=== PATIENT | male | born 1990 | race Caucasian/White ===

== ENCOUNTER 2018-07-30 18:12 | Inpatient (IN) | payer OTHER ==
[~2018-07-30] VITALS: Ht 172.7 cm; Wt 61.2 kg
[2018-07-30] MEDS ORDERED: ASPI81CH PO (18:20)
[2018-07-30] MEDS ORDERED: ESCI20 PO (18:21)
[2018-07-30] MEDS ORDERED: HYDPAM50 PO (18:21)
[2018-07-30] MEDS ORDERED: CLON.1 PO (18:21)
[2018-07-30] MEDS ORDERED: METOPROLOL PO (18:22)
[2018-07-30 19:05] LABS: BASOPHILS ABSOLUTE AUTO 0.07 K/mm3 (0.00-0.23); BASOPHILS PERCENT AUTO 0 % (0-2); EOSINOPHILS ABSOLUTE AUTO 0.01 K/mm3 (0.00-0.68); EOSINOPHILS PERCENT AUTO 0 % (0-6); Hematocrit 38.5 % (37.0-53.0); Hemoglobin 13.6 g/dL (13.5-17.5); IMMATURE GRAN PERCENT AUTO 1 % (0-1); LYMPHOCYTES ABSOLUTE AUTO 0.85 K/mm3 (0.84-5.20); LYMPHOCYTES PERCENT AUTO 4 % (21-46); MONOCYTES ABSOLUTE AUTO 1.23 K/mm3 (0.16-1.47); MONOCYTES PERCENT AUTO 6 % (4-13); Mean Corpuscular HGB 32.2 pg (26.0-34.0); Mean Corpuscular HGB Conc 35.3 g/dL (31.5-36.5); Mean Corpuscular Volume 91 fL (80-100); Mean Platelet Volume 9.6 fL (9.1-12.4); NEUTROPHILS ABSOLUTE AUTO 19.75 K/mm3 (1.96-9.15); NEUTROPHILS PERCENT AUTO 90 % (41-73); Platelet Count 310 K/mm3 (150-400); RDW Coefficient Variation 13.2 % (11.7-14.2); RDW Standard Deviation 43.2 fL (35.1-46.3); Red Blood Cell Count 4.22 M/mm3 (4.30-5.90); White Blood Cell Count 22.01 K/mm3 (4.00-11.30)
[2018-07-30 19:20] LABS: International Normalized Ratio 1.02; Prothrombin Time Results 10.8 Sec (9.7-11.5)
[2018-07-30 19:35] LABS: Alanine Aminotransfer (ALT/SGP 26 U/L (12-78); Albumin, Blood 3.8 g/dL (3.4-5.0); Alk Phos 71 U/L (50-136); Anion Gap 8 mmol/L (6-16); Aspartate Aminotrans (AST/SGOT 28 U/L (12-37); Bilirubin, Total 0.8 mg/dL (0.1-1.0); Blood Urea Nitrogen 17 mg/dL (8-24); Bun/Creatinine Ratio 26.2 (12.0-20.0); CO2, Blood 24 mmol/L (21-32); Calcium, Blood 8.8 mg/dL (8.5-10.1); Chloride, Blood 104 mmol/L (98-108); Creatinine, Blood 0.65 mg/dL (0.60-1.20); Glomerular Filtration Rate >60 (60-); Glucose, Blood 94 mg/dL (70-99); Potassium, Blood 3.9 mmol/L (3.5-5.5); Sodium, Blood 136 mmol/L (136-145); Total Protein, Blood 7.8 g/dL (6.4-8.2); Troponin I <0.015 ng/mL (0.000-0.040)
[2018-07-30 20:22] LABS: Source, Urine Catheter
[2018-07-30 20:33] LABS: Influenza A Negative (NEGATIVE); Influenza B Negative (NEGATIVE)
[2018-07-30 20:49] LABS: Appearance, Urine Clear (Clear); Bilirubin, Urine Neg (Neg); Blood, Urine Neg (Neg); Color, Urine Yellow (P-Yellow); Glucose Qualitative, Urine Neg (Neg); Ketones, Urine Neg (Neg); Leukocyte Esterase, Urine Neg (Neg); Nitrite, Urine Neg (Neg); Protein, Urine Neg (Neg); Specific Gravity, Urine 1.015 (1.003-1.022); Urobilinogen, Urine NORM (Normal)
[2018-07-30 20:59] LABS: U Amphetamine Screen Not Detected; U Barbituate Screen Not Detected; U Benzodiazapine Screen Not Detected; U Buprenorphine Screen Not Detected; U Cannabinoids Screen DETECTED; U Cocaine Screen Not Detected; U Methadone Screen Not Detected; U Methamphetamine Screen Not Detected; U Opiates Screen Not Detected; U Oxycodone Screen Not Detected; U Phencyclidine Screen Not Detected; U Propoxyphene Screen Not Detected
[2018-07-31] MEDS ORDERED: GABA300 PO (00:33)
[2018-07-31] MEDS ORDERED: PROM25 PO (00:35)
[2018-07-31 05:06] LABS: BASOPHILS ABSOLUTE AUTO 0.11 K/mm3 (0.00-0.23); BASOPHILS PERCENT AUTO 0 % (0-2); EOSINOPHILS ABSOLUTE AUTO 0.02 K/mm3 (0.00-0.68); EOSINOPHILS PERCENT AUTO 0 % (0-6); Hematocrit 37.5 % (37.0-53.0); Hemoglobin 12.7 g/dL (13.5-17.5); IMMATURE GRAN ABSOLUTE AUTO 0.14 K/mm3 (0.00-0.10); IMMATURE GRAN PERCENT AUTO 1 % (0-1); LYMPHOCYTES ABSOLUTE AUTO 1.95 K/mm3 (0.84-5.20); LYMPHOCYTES PERCENT AUTO 7 % (21-46); MONOCYTES ABSOLUTE AUTO 2.45 K/mm3 (0.16-1.47); MONOCYTES PERCENT AUTO 9 % (4-13); Mean Corpuscular HGB 32.1 pg (26.0-34.0); Mean Corpuscular HGB Conc 33.9 g/dL (31.5-36.5); Mean Platelet Volume 9.9 fL (9.1-12.4); NEUTROPHILS ABSOLUTE AUTO 23.27 K/mm3 (1.96-9.15); NEUTROPHILS PERCENT AUTO 83 % (41-73); Platelet Count 270 K/mm3 (150-400); RDW Coefficient Variation 13.2 % (11.7-14.2); RDW Standard Deviation 45.4 fL (35.1-46.3); Red Blood Cell Count 3.96 M/mm3 (4.30-5.90); White Blood Cell Count 27.94 K/mm3 (4.00-11.30)
[2018-07-31 05:20] LABS: Mean Corpuscular Volume 95 fL (80-100)
--- NOTE | 2018-07-31 05:26 | NUR ---
SHIFT SUMMARY: PT IS ALERT AND ORIENTED. PT IS ANXIOUS BUT COOPERATIVE. PT CALLS APPROPRIATELY, AND OFTEN. PT IS INDEPENDENT. PT REPORTS ANXIETY AND LEG PAIN R/T TO [facility], CALLED DR. NORIEGA SEVERAL TIMES FOR ORDERS, MEDICATING PER EMAR. PT REPORTS NAUSEA, MEDICATING PER EMAR. PT DENIES SOB. PT SLEPT VERY LITTLE OVERNIGHT. PT DOES APPEAR TO BE WITHDRAWING FROM [facility]. TELE IN PLACE, PT CONSISTENTLY SINUS TACH. FLUIDS RUNNING ORDERED. BED IN LOW POSITION, CALL LIGHT WITHIN REACH. WILL REPORT TO DAY NURSE.
[2018-07-31 05:29] LABS: Anion Gap 9 mmol/L (6-16); Blood Urea Nitrogen 17 mg/dL (8-24); CO2, Blood 24 mmol/L (21-32); Chloride, Blood 107 mmol/L (98-108); Glucose, Blood 91 mg/dL (70-99); Potassium, Blood 4.1 mmol/L (3.5-5.5); Sodium, Blood 140 mmol/L (136-145)
[2018-07-31 07:32] LABS: Bun/Creatinine Ratio 24.3 (12.0-20.0); Glomerular Filtration Rate >60 (60-)
--- NOTE | 2018-07-31 09:00 | NUR ---
PT HAS BEEN EXTREMELY ANXIOUS THIS MORNING. USING CALL GONZALES EVERY 10 MIN OR SO ASKING FOR MORE MEDICATIONS FOR ANXIETY. DR MARK IN TO SEE PT. WILL CONTINUE TO MONITOR AND MEDICATE PER EMAR.
--- NOTE | 2018-07-31 10:01 | NUR ---
NICOTINE PATCH DOSE DECREASED, PREV PATCH REMOVED AND NEW 7 MG PATCH APPLIED
--- NOTE | 2018-07-31 10:03 | NUR ---
Echocardiogram performed.
--- NOTE | 2018-07-31 10:45 | NUR ---
PT OUTSIDE PT INSISTING ON GOING OUT TO SMOKE, EXPLAINED THAT PER POLICY PTS WITH TELE CANNOT GO OUT, PT EDUCATED ON TELE NOT SHOWING ON MONITOR WHEN OUTSIDE, UNABLE TO MONITOR HEART RATE AND RYTHMN. PT CONTINUES TO INSIST AND IS GOING DOWN THE [facility]. TELE MONITOR INFORMED. NET C DEVELOPER NOTIFIED.
--- NOTE | 2018-07-31 18:36 | NUR ---
PT HAS BEEN ANXIOUS T/O THE SHIFT, CALLING FREQUENTLY FOR MORE "ANXIETY MEDS" AND PAIN MEDICATIONS. DR MARK CALLED AND PT MEDICATED PER ORDERS AND EMAR. POSITIVE BLOOD CULTURES X2 RECEIVED FROM LAB AND DR MARK INFORMED. DR PLATA CONSULTED AND HE WAS AT BEDSIDE THIS AFTERNOON. NO ACUTE CHANGES NOTED THIS SHIFT, WILL CONTINUE TO MONITOR AND REPORT TO ONCOMING RN.
[2018-07-31] MEDS ORDERED: CLON2 PO (21:51)
[2018-07-31] MEDS ORDERED: ALPR1 PO (21:52)
--- NOTE | 2018-08-01 03:39 | NUR ---
2205 FACILITIES FLIGHT CHECK PILOT MADE THIS RN AWARE THAT PT HAD GONE OUTSIDE AND HAD ASKED OTHER PATIENTS/GUEST IF THEY HAD ANY MEDICATIONS ON THEIR PERSON THAT THEY WOULD BE WILLING TO SELL TO HIM (PATIENT). DOG FOOD SHREDDER OPERATOR MADE AWARE. DOG FOOD SHREDDER OPERATOR MADE RN CONCRETE BUSTER OPERATOR AWARE. DOG FOOD SHREDDER OPERATOR SPOKE TO SAID GUEST ABOUT INTERACTION; GUEST CONFIRMED WHAT WAS STATED TO FACILITIES FLIGHT CHECK PILOT AND ALSO MADE KNOW THAT PATIENT STATED MUCH OF HIS LIFE HISTORY TO GUEST. PATIENT THEN TOLD THAT THIS RN HAD BECOME AWARE OF SUCH INTERACTION. PT BECAME A BIT AGGRESSIVE STATING THAT IT WAS MEANT TO BE A JOKE, "THAT IT IS LIKE PULLING TEETH TRYING TO GET MEDICATIONS AROUND HERE". MADE PATIENT AWARE THAT HE SHOULD NOT BE ASKING TO BUY OTHER INDIVIDUALS MEDICATIONS. PATIENT DEMONSTRATES UNDERSTANDING.
--- NOTE | 2018-08-01 04:35 | NUR ---
SHIFT SUMMARY A/O X3, ABLE TO MAKE NEEDS KNOWN. INDEPENDENT TO ROOM AND HALLS; STEADY GAIT NOTED. REQUESTED ALL PRN MEDICATIONS SOON PATIENT COULD RECEIVE; STATED IN EXCRUCIATING PAIN, RATED 6/10; HOWEVER FACE SCALE APPEARED TO BE 2/10. 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 ALSO EXHIBITS PSEUDO TREMORS WHEN HE KNOWS THIS RN CAN SEE HIM. STATES HIS LEGS CRAMP, WHICH CAUSE MUCH OF THE PAIN. OUTSIDE TO SMOKE X2. INDICENT NOTED (SEE PREV PEARL NOTE). APPREARED TO REST OFF AND ON FROM ABOUT 2340 ON. VSS REMAIN STABLE/AFEBRILE. NO ACUTE CHANGES OVERNIGHT. BED IN LOWEST POSITION. CALL LIGHT AND BELONGINGS WITHIN REACH. WCTM. REPORT TO ONCOMING RN.
--- NOTE | 2018-08-01 14:40 | NUR ---
PT UNABLE TO BE LOCATED.
--- NOTE | 2018-08-01 17:20 | NUR ---
PT ANTIBIOTIC ADMINISTRATION LATE DUE TO PATIENT UNABLE TO BE LOCATED ON MULTIPLE OCCAISIONS.
--- NOTE | 2018-08-01 18:34 | NUR ---
SHIFT SUMMARY PT REQUESTING PAIN MEDS REFUSED OFFER FOR TYLENOL OR IBUPROFEN. DR. MARK DENIED REQUEST FOR NARCOTICS FOR PAIN. VEGETATIONS FOUND ON [facility] TODAY. PT WITH MULTIPLE REQUESTS FOR ANXIETY MEDS THROUGHOUT DAY. DOWN TO SMOKE SEVERAL TIMES. SIGNIFICANT OTHER REQUESTING PATIENT BE TAKEN OFF ALL ANTI ANXIETY MEDS CURRENTLY ORDERED. RECEIVING TREATMENT AT [facility] PRIOR TO THIS ADMISSION. APPEARS IN NO ACUTE DISTRESS AT THIS TIME. SITTING ON BED WITH CROSSED LEGS; FLORES WELL. EATING AND DRINKING WELL AND ABLE TO PERFORM ALL ADL'S WITHOUT DIFFICULTY. DIFFICULTY.
--- NOTE | 2018-08-02 01:31 | NUR ---
pt wanted clonidine but did not meet critera, retook vitals got bp of 117/74, pt felt the medication would help him
--- NOTE | 2018-08-02 07:18 | NUR ---
very aware of medications, a+o wants to change his pain medication plan, does not feel his pain is controlled. call light in reach, saline locked, room air, family in room
[2018-08-02 14:52] LABS: Vancomycin, Trough 7.9 ug/mL (5.0-10.0)
--- NOTE | 2018-08-02 18:25 | NUR ---
Several visits with Guillaume and his , Glenna today. Guillaume was tearful. He admitted to returning to IV drug use and said "I have two months to live." He could not remember who told him this. Throughout our conversations, he would alternate between tearfulness and aggitation. He was irritated that "We" are not giving him the medication he wants for his "chronic pain." His arrived and they began to argue. Facilitated a conversation between them that appeared to calm them both for awhile. Both are historionic and tense. Provided prayer for them at their request. Guillaume moved from statements about his impending and wanting to go to [place] for another valve replacement. I am unsure what is realistic. I will remain available.
--- NOTE | 2018-08-02 18:50 | NUR ---
PATIENT A/OX4, UP INDEPENDENTLY IN ROOM. AT BEDSIDE THROUGHOUT THE SHIFT. PATIENT VERY ANXIOUS AND UPSET ABOUT POOR PAIN CONTROL THIS SHIFT. [facility] CALLED THIS AM BECAUSE PATIENT WAS PUNCHING THE WALL. PATIENT CALMED DOWN AND APOLOGIZED FOR HIS BEHAVIOR. VSS. 20G IV TO R AC WNL AND SL BETWEEN ABX. TYLENOL AND IBUPROFEN GIVEN TO TREAT PAIN. LIBRIUM AND XANAX FOR WITHDRAWAL SYMPTOMS. ESTEFANY THE CREEL CLERK AT BEDSIDE TODAY. D/C PLANING TRYING TO GET PATIENT A BED IN [place] AT A SNF FOR ASSISTED ABX. PATIENT CALLS APPROPRIATELY FOR ASSISTANCE.
--- NOTE | 2018-08-03 00:06 | NUR ---
PATIENT LEFT THE PATIENT LEFT THE HOSPITAL AMA AT 2020 THIS SHIFT. THE PATIENT'S DISCHARGE WAS TAKEN CARE OF AT THE [facility] DESK.
== END 2018-08-02 20:20 | disposition left against medical advice (07) | DRG 314 ==
LOC: ER 18:12 → MEDS 18:13
PROVIDERS: Emergency Medicine; Nurse Practitioner Acute Care; Pharmacist; ADMIT Internal Medicine
DX: T82.6XXA Infection and inflammatory reaction due to cardiac valve prosthesis, initial encounter (principal); A41.9 Sepsis, unspecified organism; I33.0 Acute and subacute infective endocarditis; I38 Endocarditis, valve unspecified; F13.239 Sedative, hypnotic or anxiolytic dependence with withdrawal, unspecified; Z95.4 Presence of other heart-valve replacement; F41.9 Anxiety disorder, unspecified; F32.9 Major depressive disorder, single episode, unspecified; F98.8 Other specified behavioral and emotional disorders with onset usually occurring in childhood and adolescence
CPT/HCPCS: 36415; 71046; 80048; 80053; 80202; 81003; 83605; 84145; 84484; 85025; 85610; 85651; 85730; 86140; 87040; 87077; 87086; 87184; 87804; 93005; 93010; 93306; 93312; 93325; 96361; 96365; 96366; 96367; 96368; 96372; 96375; 96376; 99285-25; G0378; J0696; J1170; J1650; J2060; J2185; J2250; J2405; J2543; J3010; J3360; J3370; J7030; J7120; Q0177